=== PATIENT | female | born 1985 | race Caucasian/White ===

== ENCOUNTER 2017-04-16 17:10 | Emergency (ER) | payer OTHER ==
[~2017-04-16] VITALS: Ht 175.3 cm; Wt 154.2 kg
[~2017-04-16 17:10] MED LIST: ALBUTEROL2.5 MG/31 INH; AUGMENTIN 875-1 EACH PO; NAPROSYN375 MG PO; PREDNISONE 20 M20 M1 PO; PROVENTIL HFA6.7 G1 INH; ULTRAM 50MG TAB50 MG PO
[2017-04-16] MEDS ORDERED: MEDROLDOSEPACK PO (18:05)
[2017-04-16 18:10] VITALS: BP 159/90
== END 2017-04-16 18:12 | disposition home or self-care (01) ==
LOC: M.ERS 17:10
DX: M70.871 Other soft tissue disorders related to use, overuse and pressure, right ankle and foot (principal); J45.909 Unspecified asthma, uncomplicated; I10 Essential (primary) hypertension; Y93.89 Activity, other specified

== ENCOUNTER 2018-02-17 07:56 | Emergency (ER) | payer OTHER ==
[~2018-02-17] VITALS: Ht 175.3 cm; Wt 147.4 kg
[~2018-02-17 07:56] MED LIST changes: +MEDROLDOSEPACK PO
[2018-02-17] MEDS ORDERED: ACCUNEB SO1.25 MG/1 INH (08:18)
[2018-02-17] MEDS ORDERED: ZPAK PO (09:05)
[2018-02-17] MEDS ORDERED: ALBUTEROL2.5 MG/31 INH (09:05)
[2018-02-17] MEDS ORDERED: PREDNISONE50 MG PO (09:05)
[2018-02-17 09:20] VITALS: BP 149/76
== END 2018-02-17 09:21 | disposition home or self-care (01) ==
LOC: M.ERS 07:56
DX: J18.9 Pneumonia, unspecified organism (principal); I10 Essential (primary) hypertension; F17.210 Nicotine dependence, cigarettes, uncomplicated

== ENCOUNTER 2018-11-06 14:59 | Emergency (ER) | payer OTHER ==
[~2018-11-06] VITALS: Ht 177.8 cm; Wt 138.8 kg
[~2018-11-06 14:59] MED LIST changes: +ACCUNEB SO1.25 MG/1 INH; +PREDNISONE50 MG PO; +ZPAK PO
[2018-11-06 15:05] VITALS: BP 191/111
[2018-11-06] MEDS ORDERED: AMPICILLIN TRI500 MG PO (15:08)
[2018-11-06] MEDS ORDERED: DEXAMETHASONE 0.5 M1 OTIC (15:37)
[2018-11-06] MEDS ORDERED: AMOXICILLIN 50500 MG PO (15:37)
[2018-11-06] MEDS ORDERED: CIPROFLOXIN HC2.5 M1 OTIC (15:37)
== END 2018-11-06 15:53 | disposition home or self-care (01) ==
LOC: M.ERS 14:59
DX: H66.91 Otitis media, unspecified, right ear (principal); H60.311 Diffuse otitis externa, right ear; F17.210 Nicotine dependence, cigarettes, uncomplicated; J45.909 Unspecified asthma, uncomplicated; I10 Essential (primary) hypertension

== ENCOUNTER 2020-09-22 18:03 | Emergency (ER) | payer OTHER ==
[~2020-09-22] VITALS: Ht 177.8 cm; Wt 153.3 kg
[~2020-09-22 18:03] MED LIST changes: +AMOXICILLIN 50500 MG PO; +AMPICILLIN TRI500 MG PO; +CIPROFLOXIN HC2.5 M1 OTIC; +DEXAMETHASONE 0.5 M1 OTIC
[2020-09-22 18:18] VITALS: BP 159/106
[2020-09-22 19:36] LABS: URINE BILIRUBIN NEGATIVE (Negative); URINE BLOOD 3+ (Negative); URINE COLOR YELLOW; URINE GLUCOSE-RANDOM NEGATIVE (Negative); URINE KETONES NEGATIVE (Negative); URINE LEUKOCYTES-REFLEX NEGATIVE (Negative); URINE NITRITE-REFLEX NEGATIVE (Negative); URINE PROTEIN 1+ (Negative); URINE SPECIFIC GRAVITY 1.025 (1.005-1.030)
[2020-09-22 19:38] LABS: URINE CLARITY HAZY
[2020-09-22 19:40] LABS: BACTERIA-REFLEX None Seen /HPF (None Seen); CASTS None Seen /LPF (None Seen); CRYSTALS None Seen /LPF (None Seen); MUCUS 0-3 Light strn/LPF (None Seen); SQUAMOUS 4-10 Moderate /LPF (0-3); URINE RBC 3-10 Few /HPF (0-2); URINE WBC-REFLEX None Seen /HPF (0-5)
== END 2020-09-22 20:37 | disposition left against medical advice (07) ==
LOC: M.ERS 18:03
PROVIDERS: Physician Assistant
DX: M54.9 Dorsalgia, unspecified (principal); Z53.21 Procedure and treatment not carried out due to patient leaving prior to being seen by health care provider